=== PATIENT | male | born 1995 | race Caucasian/White ===

== ENCOUNTER → 2018-11-06 | Day surgery (SDC) | payer BC ==
[~2018-11-06] MED LIST: IV RINGERS,LACTATED 1000ML 1,000 ML IV SCH; LIDOCAINE 2% PF 5 ML VIAL. ONE; PROPOFOL 40 ML IV ONE
[2018-11-06 11:33] VITALS: BP 108/60
--- NOTE | 2018-11-07 14:07 | PATHOLOGY ---
[facility] Accession Number: [id number] . 01 Material submitted: . PART A: small bowel - SMALL BOWEL PART B: stomach - GASTRIC ANTRUM BODY PART C: esophagus - DISTAL ESOPHAGUS. Modifiers: distal PART D: esophagus - MID ESOPHAGUS. Modifiers: mid . 01 Clinical history: . Pre-OP DX: Dysphagia, nausea with vomiting, coughing, choking Post-OP DX: Gastritis, esophagitis . 02 Diagnosis: A. Small bowel biopsies: - No significant pathologic abnormalities, with focally prominent submucosal Claudia's glands. . B. Gastric biopsies, gastric antrum and body: - Congestion and slight chronic inflammation. . C. Esophageal biopsy, distal esophagus: - Segment of gastric mucosa showing focal moderate chronic inflammation and pancreatic metaplasia. . D. Esophageal biopsies middle esophagus: - Segments of mildly hyperplastic squamous esophageal mucosa identified. (JPM:grzegorz; 11/07/2018) QMS/11/07/2018 . 02 Comment: Sections of the small bowel biopsy reveal segments of duodenal and small intestine mucosa. There are focally prominent submucosal Claudia's glands. Where best oriented, the mucosal villi show no sprue-like changes or significant inflammatory changes. . Sections of the gastric biopsy reveal segments of gastric body and antral/body transition mucosa showing congestion and slight chronic inflammation. A properly controlled immunoperoxidase stain for Helicobacter is negative for Helicobacter organisms. . Sections of the distal esophageal biopsy reveal a segment of gastric mucosa showing focal moderate chronic inflammation and pancreatic metaplasia. There is no squamous esophageal mucosa. . Sections of the middle esophagus biopsy reveal segments of tangentially oriented mildly hyperplastic squamous esophageal mucosa. There is an occasional intraepithelial eosinophil, which is consistent with mild reflux changes. There is no evidence of Waterman's change, dysplasia, or malignancy. (JPM:grzegorz; 11/07/2018) . . Special stain performed: Immunoperoxidase stain for Helicobacter on B1. . 02 Electronically signed: . Caleb Morejon MD, Pathologist NPI- [id number] . 01 Gross description: . A. Received in formalin labeled "Ibrahima Hamilton, small bowel BX," are 4 segments of mayberry soft tissue measuring 1.0 x 0.9 x 0.3 cm in aggregate dimensions and ranging from 0.3 to 0.4 cm in maximum dimension. The specimen is submitted entirely in cassette A1. . B. Received in formalin labeled "Alfonso, Ibrahima, gastric antrum and body BX," are 4 segments of mayberry soft tissue measuring 1.8 x 1.1 x 0.3 cm in aggregate dimensions and ranging from 0.4 to 0.8 cm in maximum dimension. The specimen is submitted entirely in cassette B1. . C. Received in formalin labeled "Ibrahima Hamilton, distal esophageal BX," is a single segment of mayberry soft tissue measuring 0.4 cm in maximum dimension. The specimen is entirely submitted in cassette C1. . D. Received in formalin labeled "Alfonso, Ibrahima, mid esophagus BX," are 2 segments of mayberry soft tissue measuring 0.7 x 0.2 x 0.1 cm in aggregate dimensions and ranging from 0.3 to 0.4 cm in maximum dimension. The specimen is submitted entirely in cassette D1. (TSD; 11/06/2018) TOB/TOB . 02 Pathologist provided ICD-10: K31.89, K29.50 . 02 CPT . 821958, 017918, 698041, [id number], [id number] Specimen Comment: A courtesy copy of this report has been sent to Specimen Comment: [phone], . Specimen Comment: Report sent to and Performed at: 01 [facility] [address], [place], [place] [id number] MD Sy Brunson MD Phone: [phone] Performed at: 02 [facility] [place] [address] [place], [place] [id number] MD Caleb Morejon MD Phone: [phone]
== END ==
LOC: SURG 10:02
PROVIDERS: ATTEND Internal Medicine Gastroenterology
DX: K21.0 Gastro-esophageal reflux disease with esophagitis (principal); K29.50 Unspecified chronic gastritis without bleeding; F43.10 Post-traumatic stress disorder, unspecified; F17.210 Nicotine dependence, cigarettes, uncomplicated; Z98.890 Other specified postprocedural states
CPT/HCPCS: 43239; 43450; 88305; 88342; J2001; J2704